=== PATIENT | female | born 1950 | race Caucasian/White ===

== ENCOUNTER 2018-09-10 15:46 | Observation (INO) | payer MEDICARE ==
--- NOTE | 2018-09-10 16:25 | ED ---
Complex/Multi-Sys Presentation - HPI Summary HPI Summary: Patient is a 67 y/o F presenting to ED via EMS with complaints of chest pressure , jaw tightness, diaphoresis, bilateral shoulder tightness, and tongue and bilateral arm numbness. Sx onset around an hour ago. She began to hyperventilate after initial Sx onset. Patient was concerned that she was having an CT and decided to take seven baby ASA. EMS did not provide any medications. She denies abdominal pain. Patient denies Hx of CT but endorses Hx of panic attacks. She notes this presentation of Sx is dissimilar to prior panic attacks. No Hx of blood clots, HTN, HLD, diabetes. Patient is followed by Dr. Guerrero. She notes that she had a normal cardiac stress test four years ago. On triage, pain is denied (however, patient does endorse chest pressure and jaw tightness), nothing is noted to aggravate/alleviate Sx. Home medications and allergies are reviewed. is present in the room. - History Of Current Complaint Chief Complaint: EDGeneral Time Seen by Provider: 09/10/18 16:05 Hx Obtained From: Patient Onset/Duration: Lasting Hours - onset an hour ago, Still Present - jaw tightness is still present Timing: Hours - onset an hour ago Severity Currently: None - pain denied but jaw tightness endorsed Location: Pain At: - chest pressure, jaw tightness Aggravating Factor(s): nothing Alleviating Factor(s): nothing Associated Signs And Symptoms: Positive: Chest Pain - pressure, Diaphoresis, Other - POSITIVE - JAW TIGHTNESS, BILATERAL SHOULDER TIGHTNESS, TONGUE AND BILATERAL ARM NUMBNESS, HYPERVENTILATION. Negative: Abdominal Pain - Allergies/Home Medications Allergies/Adverse Reactions: Allergies Allergy/AdvReac Type Severity Reaction Status Date / Time No Known Allergies Allergy Verified 09/10/18 15:51 Home Medications: Home Medications Latanoprost 0.005%* [Xalatan 0.005%*] 1 drop BOTH EYES QPM 09/10/18 [History Confirmed 09/10/18] PMH/Surg Hx/FS Hx/Imm Hx Cardiovascular History: Reports: Hx Angina, Hx Hypercholesterolemia Denies: Hx Coronary Artery Disease, Hx Hypertension, Hx Myocardial Infarction , Hx Valvular Heart Disease Respiratory History: Denies: Hx Asthma, Hx Chronic Obstructive Pulmonary Disease (COPD) Musculoskeletal History: Denies: Hx Osteoporosis Psychiatric History: Reports: Hx Panic Disorder - Cancer History Hx Chemotherapy: No Hx Radiation Therapy: No Infectious Disease History: No Infectious Disease History: Denies: Traveled Outside the [place] in Last 30 Days - Family History Known Family History: Positive: Respiratory Disease - COPD, Other - MOTHER HAD BREAST CA - Social History Alcohol Use: None Substance Use Type: Reports: None Smoking Status (MU): Former Smoker Type: Cigarettes Amount Used/How Often: PT. USES [employer] Length of Time of Smoking/Using Tobacco: 20 YEARS Have You Smoked in the Last Year: No Review of Systems Positive: Fatigue Positive: Chest Pain - pressure Respiratory: Other - POSITIVE - HYPERVENTILATION Negative: Abdominal Pain Musculoskeletal: Other - POSITIVE - JAW TIGHTNESS, BILATERAL SHOULDER TIGHTNESS Positive: Numbness - TONGUE AND ARMS BILATERALLY All Other Systems Reviewed And Are Negative: Yes Physical Exam - Summary Physical Exam Summary: GENERAL: Patient is a well-developed and nourished female who is lying comfortable in the stretcher. Patient is not in any acute respiratory distress. HEAD AND FACE: Normocephalic EYES: PERRLA, EOMI x 2. EARS: Hearing grossly intact. MOUTH: Oropharynx within normal limits. NECK: Supple, trachea is midline, no adenopathy, no JVD, no carotid bruit. CHEST: Symmetric, no tenderness at palpation LUNGS: Clear to auscultation bilaterally. No wheezing or crackles. CVS: Regular rate and rhythm, S1 and S2 present, no murmurs or gallops appreciated. ABDOMEN: Soft, non-tender. Bowel sounds are normal. No abnormal abdominal pulsations. EXTREMITIES: Full ROM in all major joints, no edema, no cyanosis or clubbing. NEURO: Alert and oriented x 3. No acute neurological deficits. Speech is normal and follows commands. SKIN: Dry and warm Triage Information Reviewed: Yes Vital Signs On Initial Exam: Initial Vitals Temp Pulse Resp BP Pulse Ox 98.2 F 78 20 126/86 100 09/10/18 15:48 09/10/18 15:48 09/10/18 15:48 09/10/18 15:48 09/10/18 15:48 Vital Signs Reviewed: Yes Diagnostics - Vital Signs Vital Signs Temp Pulse Resp BP Pulse Ox 09/10/18 15:48 98.2 F 78 20 126/86 100 - Laboratory Result Diagrams: 09/10/18 16:27 09/10/18 16:27 Lab Statement: Any lab studies that have been ordered have been reviewed, and results considered in the medical decision making process. - Radiology CHEST X-RAY Radiology Interpretation Completed By: Radiologist Summary of Radiographic Findings: CXR IMPRESSION: #. Stigmata of obstructive lung disease. No acute pulmonary or cardiac process evident. THIS REPORT WAS REVIEWED BY ED PHYSICIAN. - EKG 1548 Cardiac Rate: NL - rate of 75 BPM EKG Rhythm: Sinus Rhythm Summary of EKG Findings: EKG showed sinus rhythm with rate of 75 BPM, q waves in anterior leads, normal axis. Complex Multi-Symp Course/Dx Course Of Treatment: Patient is a 67 y/o F presenting to ED via EMS with complaints of jaw tightness, diaphoresis, bilateral shoulder tightness, and tongue and bilateral arm numbness. Sx onset around an hour ago. She began to hyperventilate after initial Sx onset. Patient was concerned that she was having an CT and decided to take seven baby ASA. EMS did not provide any medications. She denies chest pain, abdominal pain. Patient denies Hx of CT but endorses Hx of panic attacks. She notes this presentation of Sx is dissimilar to prior panic attacks. No Hx of blood clots, HTN, HLD, diabetes. Patient is followed by Dr. Guerrero and notes that she had a normal cardiac stress test four years ago. Physical exam is unremarkable. EKG showed sinus rhythm with rate of 75 BPM, q waves in anterior leads, normal axis. CXR IMPRESSION: #. Stigmata of obstructive lung disease. No acute pulmonary or cardiac process evident. Labs showed RBC 4.98, glucose 111, lactic acid 1.3. D-dimer < 200, trop 0. Salicylates were 5.3. During ED course, patient received nitro 0.4 mg SL ED ONCE. Patient's case was discussed with Dr. Lerma, Dr. Lerma accepts for admission. - Diagnoses Provider Diagnoses: Chest pain - Physician Notifications Discussed Care Of Patient With: Gabriella Lerma Time Discussed With Above Provider: 19:42 Instructed by Provider To: Other - Patient's case was discussed with Dr. Lerma, Dr. Lerma accepts for admission. Discharge - Sign-Out/Discharge Documenting (check all that apply): Patient Departure - admit Patient Received Moderate/Deep Sedation with Procedure: No - Discharge Plan Condition: Good Disposition: ADMITTED TO [facility] Referrals: Jasper Morataya MD [Primary Care Provider] - - Billing Disposition and Condition Condition: GOOD Disposition: Admitted to [facility] - Attestation Statements Document Initiated by Tammy: Yes Documenting Scribe: CYNTHIA AYERS Provider For Whom Tammy is Documenting (Include Credential): MU HOUSTON MD Scribe Attestation: ICYNTHIA, scribed for MU HOUSTON MD on 09/10/18 at 2004. Scribe Documentation Reviewed: Yes Provider Attestation: The documentation as recorded by the CYNTHIA martin accurately reflects the service I personally performed and the decisions made by me, MU HOUSTON MD Status of Scribe Document: Viewed
[2018-09-10 16:33] LABS: ABS Basophils 0.1 10^3/ul (0-0.2); ABS Eosinophils 0.1 10^3/ul (0-0.6); ABS Lymphocytes 1.6 10^3/ul (1.0-4.8); ABS Monocytes 0.5 10^3/ul (0-0.8); ABS Neutrophils 6.6 10^3/ul (1.5-7.7); Eosinophil % 1.6 %; Hematocrit 43 % (35-47); Hemoglobin 15.2 g/dL (12.0-16.0); Lymphocyte % 18.4 %; Mean Corpuscular HGB Conc 35 g/dL (31-36); Mean Corpuscular Hemoglobin 31 pg (27-31); Mean Corpuscular Volume 87 fL (80-97); Mean Platelet Volume 9.3 fL (7.4-10.4); Platelet Count 184 10^3/uL (150-450); Red Blood Count 4.98 10^6 /uL (3.70-4.87); Red Cell Distribution Width 13 % (10.5-15); White Blood Count 8.9 10^3/uL (3.5-10.8)
[2018-09-10] MEDS ORDERED: Nitroglycerin TAB 0.4 MG* 0.4 MG TAB SL ONE (16:33)
[2018-09-10 16:56] LABS: Albumin 4.3 g/dL (3.2-5.2); Albumin/Globulin Ratio 1.8 (1-3); Calcium 9.6 mg/dL (8.6-10.3); EGFR African American 71.9 (>60); EGFR Non-African American 59.4 (>60); Globulin 2.4 g/dL (2-4); Potassium 3.8 mmol/L (3.5-5.0); Total Bilirubin 0.6 mg/dL (0.2-1.0); Total Protein 6.7 g/dL (6.4-8.9)
[2018-09-10 17:10] LABS: Salicylate 5.3 mg/dL (<30)
[2018-09-10 17:17] LABS: Activated Partial Thrombo Time 37.3 seconds (26.0-38.0); INR 1.02 (0.82-1.09)
[2018-09-10] MEDS ORDERED: Latanoprost 0.005%* 2.5 ml BTL BOTH EYES SCH (22:00)
--- NOTE | 2018-09-10 22:24 | HP ---
HISTORY AND PHYSICAL: DATE OF ADMISSION: 09/10/18 TIME OF EVALUATION: 1999. CHIEF COMPLAINT: Jaw pain, diaphoresis, and shortness of breath. PRIMARY CARE PHYSICIAN: Dr. Jasper Morataya. HISTORY OF PRESENT ILLNESS: This is a 67-year-old female who was relatively healthy, who power walks on a nearly daily basis, who was out power walking today and she felt off. She cut it short. As she was walking into the house, she felt both of her arms numb. She had tightness around her mouth and her jaw. She became very sweaty. She was very nervous, she called 911. When she called them, she was hyperventilating. They tried to help her calm down. She felt better after she started controlling her breathing. She did not have any chest discomfort at all during this time. She did feel short of breath and nauseated and significantly sweaty. She took 7 baby aspirin and by the time she arrived to the emergency room, her symptoms nearly resolved. She states she has a history of panic attacks, but usually feels them coming on and this seemed to be different. She did have a treadmill stress test many years ago that was unremarkable. She denies any recent UR illness. No fever, no burping , or indigestion. No recent exertional activity. She has had a lot of increase in stress in her life recently. In the emergency room, the patient had labs, imaging. She was given sublingual nitro and now she is currently symptom free. Otherwise, review of systems is negative. PAST MEDICAL HISTORY: 1. Glaucoma. 2. Depression. MEDICATIONS: 1. Xalatan 1 drop both eyes in the evening. 2. Zoloft 200 mg p.o. daily. ALLERGIES: No known drug allergies. FAMILY HISTORY: Her mother from breast cancer. Father from old age. Her paternal grandfather at age 48 from an acute cardiac arrest. SOCIAL HISTORY: The patient lives at home with her , who is her healthcare proxy. She is a retired condominium property manager. She states she tries to power walk daily, nearly 1 to 2 miles. She quit smoking more than 30 years ago. At that time, she was a pack a day for 20 years. No alcohol use or illicit drug use. Code status is full code. REVIEW OF SYSTEMS: A 14-point review of systems as mentioned in the HPI, otherwise negative. PHYSICAL EXAMINATION GENERAL: In no acute distress, resting comfortably with her at the bedside. VITAL SIGNS: Temp 98.2, pulse rate 86, respiratory rate 15, oxygen saturation 93 % on room air, blood pressure 112/74. HEENT: Normocephalic. Pupils are equal and reactive, anicteric. Oropharynx: Mucous membranes moist. NECK: Supple. No adenopathy. CARDIAC: Regular rate and rhythm. Soft systolic murmur heard throughout. RESPIRATORY: Diminished breath sounds. No wheeze, rhonchi, or rales. ABDOMEN: Soft, nontender and nondistended. EXTREMITIES: No clubbing, cyanosis or edema. +2 DPs. NEUROLOGIC: Alert and oriented x3. No gross focal neurologic deficits. DIAGNOSTIC STUDIES/LAB DATA: White count 8.9, hemoglobin 15.2, hematocrit 43, platelets 184. INR is 1. D-dimer is less than 200. Sodium 140, potassium 3.8 , chloride 104, bicarb 27, BUN 16, creatinine 0.95, glucose 111. Lactic acid 1.3. Troponin is 0 x2. Salicylate is 5.3. Radiographic Data: Chest x-ray stigmata of obstructive lung disease, no acute pulmonary or cardiac process evident. EKG: No prior EKG to compare to. Normal sinus rhythm. No significant ST changes. ASSESSMENT AND PLAN: This is a 67-year-old female with a past medical history of depression and panic attacks, who presents to the emergency room with acute onset of jaw pain, diaphoresis, shortness of breath and nausea. 1. Jaw pain with associated diaphoresis, nausea and shortness of breath. Assessment: The patient states she does get hot flashes. I suspect this is most likely the start of a hot flash which turned into a panic attack and not an acute coronary syndrome, however, it is not unreasonable in women with atypical symptoms to admit them overnight to observe them to rule them out and to plan for treadmill stress test. We will admit her to the CVU observation unit, follow up on her second troponin. We will add on lipid panel and hemoglobin A1c as her glucose was slightly elevated. I will continue her on baby aspirin for now and follow up on a treadmill test in the morning. 2. Chronic medical problems. Continue her on latanoprost and her sertraline. 3. FEN: Regular diet, NPO after midnight. 4. DVT prophylaxis: The patient scores moderate risk. We will encourage ambulation. 5. Code status: Full code. PATIENT TIME: Greater than 30 minutes was spent doing the history and physical , more than half the time was direct patient contact. [id number]/[facility] #: [id number] MTDD
[2018-09-11] MEDS ORDERED: Aspirin 81 mg CHEW TAB* 81 MG TAB.CHEW PO SCH (09:00)
[2018-09-11] MEDS ORDERED: Sertraline* 100 MG TAB PO SCH (09:00)
--- NOTE | 2018-09-11 16:18 | PN ---
Subjective Date of Service: 09/11/18 Interval History: Ms. Berry states that she is feeling well and is eager for discharge to home. Objective Active Medications: Aspirin (Aspirin 81 Mg Chew Tab*) 81 mg PO DAILY [facility] Latanoprost (Xalatan 0.005%*) 1 drop BOTH EYES QPM BUCK Sertraline HCl (Zoloft*) 200 mg PO DAILY [facility] Vital Signs - 8 hr 09/11/18 09/11/18 10:11 12:00 Temperature 97.5 F 96.5 F Pulse Rate 55 81 Respiratory 18 19 Rate Blood Pressure 119/73 104/86 (mmHg) O2 Sat by Pulse 99 96 Oximetry Oxygen Devices in Use Now: None Appearance: Female lying in bed in NAD Eyes: No Scleral Icterus Ears/Nose/Mouth/Throat: Mucous Membranes Moist Neck: Trachea Midline Respiratory: Symmetrical Chest Expansion and Respiratory Effort, Clear to Auscultation Cardiovascular: NL Sounds; No Murmurs; No JVD, No Edema Abdominal: NL Sounds; No Tenderness; No Distention Extremities: No Edema Skin: No Rash or Ulcers Neurological: Alert and Oriented x 3, NL Muscle Strength and Tone Nutrition: Taking PO's Result Diagrams: 09/10/18 16:27 09/10/18 16:27 Assess/Plan/Problems-Billing Assessment: Ms. Berry is a 67 yo F with a PMH of anxiety and panic attacks who presented with chest pain on 09/20/18. - Patient Problems (1) Chest pain Comment: - Trops negative, exercise stress test negative - Suspect symptoms are related to anxiety, patient concurs given history of same (2) DVT prophylaxis Comment: Status and Disposition: OBV. Discharge to home.
[2018-09-11 16:43] VITALS: BP 103/63
--- NOTE | 2018-09-11 22:00 | DS ---
CC: Dr. Morataya * DISCHARGE SUMMARY: DATE OF ADMISSION: 09/10/18 DATE OF DISCHARGE: 09/11/18 PRIMARY CARE PHYSICIAN: Dr. Morataya. ATTENDING PHYSICIAN: Dr. Janeth Bates * (dictation provided by Angelica Durant NP.) PRIMARY DIAGNOSIS: Chest pain, atypical. SECONDARY DIAGNOSES: 1. History of anxiety with panic attacks. 2. Glaucoma. 3. Depression. MEDICATIONS: At the time of discharge are unchanged, are: 1. Xalatan as directed. 2. Zoloft 200 mg p.o. daily. HOSPITAL COURSE: Ms. Berry is a 67-year-old female with past medical history as outlined above, who presented to the emergency room on 09/10/18 with concern for jaw pain, diaphoresis, and shortness of breath. Please see the dictated H and P from Gabriella Lerma MD for complete details. In brief, the patient states , she had been out on a walk when she started to feel "off." She cut the walk short and thereafter had pain, numbness in her arms and tightness in her mouth and jaw. She became sweaty and nervous and she called the EMS to be brought to the hospital. In the emergency room, the patient had labs, which showed a troponin of 0.00 x 3. Ultimately, she had an EKG, which showed a sinus rhythm with no evidence of ischemia. She went on for a stress test exercise only without nuclear medicine and it was found to show low risk with no evidence of ischemia. Ms. Berry is medically stable for discharge at home. Her workup for atypical chest pain has been negative. The only other test noted today that was not mentioned was a chest x-ray that showed "stigmata of obstructive lung disease, no acute pulmonary or cardiac process evident." Ms. Berry states that she has had a long-term history of panic attacks and although this episode felt a little different that she feels likely that these symptoms are all related perhaps to anxiety. She is on sertraline, but will be following up with Dr. Morataya regarding any adjustment of medications as needed. She has had no further symptoms since being here in the hospital and is eager for discharge to home. DISPOSITION: To home. ACTIVITY: As tolerated. FOLLOWUP PLANS: Please follow up with Dr. Morataya in the next 48 to 72 hours regarding this acute hospitalization. TIME SPENT: Approximately 60 minutes were spent in the discharge of this patient, more than half time was spent with the patient at the bedside reviewing the events leading up to this hospitalization, performing physical examination, and reviewing my plan of care. ANGELICA DURANT NP [id number] #: [id number]
== END 2018-09-11 17:00 | disposition home or self-care (01) ==
LOC: ED 15:46 → MEDTELE 20:21
PROVIDERS: ADMIT Pediatrics; ATTEND Hospitalist
DX: R07.89 Other chest pain (principal); F41.0 Panic disorder [episodic paroxysmal anxiety]; F32.9 Major depressive disorder, single episode, unspecified; H40.9 Unspecified glaucoma; Z79.82 Long term (current) use of aspirin; R68.84 Jaw pain; Z87.891 Personal history of nicotine dependence; Z79.899 Other long term (current) drug therapy
CPT/HCPCS: 36415; 71046; 80053; 80329; 83036; 83605; 83690; 84484; 85025; 85379; 85610; 85730; 93005; 93017; 99285; A9270-GY; G0378; G0480